=== PATIENT | male | born 1975 | race Caucasian/White ===

== ENCOUNTER 2019-05-10 21:27 | Emergency (ER) | payer BC, SELFPAY ==
[2019-05-10 21:29] VITALS: BP 134/91; PULSE 90; RESP 16; TEMP 36.7; O2SAT 98; BMI 27.3
--- NOTE | 2019-05-10 22:47 | EKG12_ITS ---
Test Reason : GENERAL ILLNESS Blood Pressure : / mmHG Vent. Rate : 078 BPM Atrial Rate : 078 BPM P-R Int : 154 ms QRS Dur : 098 ms QT Int : 406 ms P-R-T Axes : 053 078 034 degrees QTc Int : 462 ms Normal sinus rhythm Normal ECG Confirmed by JB SAL [id number]), editor producer NATHANIEL SPANGLER ([id number]) on 05/13/2019 2:52:56 PM Referred By: LIA Confirmed By:JB SAL
--- NOTE | 2019-05-10 22:48 | ED.VIS.GEN ---
History of Present Illness Chief Complaint: General Illness Informant: Patient, Family Onset: Today Context: Gradual Onset - See below Timing: Continuous Quality: Generalized weakness Location: All over Current Severity: Moderate Maximum Severity: Severe Associated Symptoms: Sweating. Near syncopal. Narrative: Just prior to the onset of symptoms, patient states he was working on a car, taking a gas tank off of it and working within it. He was inhaling lots of fumes of gasoline. Then afterwards he went home and smoked. Afterwards he noticed he was feeling very weak and tired. He qualifies this by saying he has been working for the last 14 days in a row and has been fatigued. However he broke into a sweat and felt like he was going to pass out but had no other prodromal symptoms. He is very poor historian and his mother provides most of the history, he gives very vague answers to yes/no questions, he states he is not feeling lightheaded now but he was earlier when he was really feeling worse. Just a little bit ago, he started developing left-sided nonpleuritic chest discomfort which is still there. He denies any dyspnea, palpitations, headache, focal neurologic symptoms, changes in vision, or GI symptoms. He has not lost consciousness or been confused. Past Medical History - Allergies and Home Meds Allergies/Adverse Reactions: Allergies No Known Allergies Allergy (Verified 05/10/19 21:29) Primary Care Physician: Care Physician,No Primary [Primary Care Provider] - Past Medical History: None Lives: With Family Smoking Status: Current every day smoker Review of Systems General: Reports: Malaise, Subjective. Denies: Chills, Fever, Sweats Eyes: Denies: Visual changes - bilaterally, Diplopia ENT: Denies: Bilateral ear pain, Rhinorrhea, Sore throat Cardiovascular: Reports: Chest pain - Left side without radiation. Denies: Palpitations Respiratory: Denies: Dyspnea, Cough, Dyspnea on exertion Gastrointestinal: Denies: Abdominal pain, Nausea, Vomiting, Diarrhea, Melena, Hematochezia Genitourinary: Denies: Dysuria, Hematuria, Frequency Musculoskeletal: Reports: Back pain - Low back, muscular, chronic and unchanged. Denies: Swelling, Extremity Pain Skin: Denies: Rash, Wounds Neurological: Denies: Headache, Weakness, Numbness Physical Exam Vital Signs/Narrative: Vital Signs Temp Pulse Resp BP Pulse Ox 05/10/19 21:29 98.1 F 90 16 134/91 H 98 Inital Vital Signs reviewed: Yes General: Well nourished, Well developed, No Acute Distress Head: Normocephalic, Atraumatic Eyes: Perrl, EOMI ENT: Moist mucous membranes, No rhinorrhea, - - Posterior oropharynx clear Neck: Supple, Nontender, No lymphadenopathy, No JVD Cardiovascular: Regular rate, Regular rhythm, No murmurs Respiratory: No distress, CTA bilaterally, Chest nontender Abdomen: Soft, Nontender, Nondistended, Normal bowel sounds Back: Nontender, Normal Inspection Extremities: Nontender, No edema Skin: Normal color, No rash Neurological: Alert, Oriented x3, Cranial nerves II-XII grossly intact, Normal Strength, Normal Sensation Psychological: Normal affect, Normal Mood Diagnostic/Tx/Re-eval Laboratory Results 05/10/19 05/10/19 05/10/19 23:02 23:02 23:02 WBC 10.1 RBC 4.42 L Hgb 14.0 Hct 40.7 MCV 92.1 MCH 31.7 MCHC 34.4 RDW Std Deviation 43.8 RDW Coeff of Deanna 12.9 Plt Count 258 MPV 9.5 Immature Gran % (Auto) 0.500 Neut % (Auto) 62.0 Lymph % (Auto) 23.4 [place] % (Auto) 10.7 H Eos % (Auto) 2.8 Baso % (Auto) 0.6 Absolute Neuts (auto) 6.3 Absolute Lymphs (auto) 2.37 Nucleated RBC % 0 Sodium 139 Potassium 3.8 Chloride 108 H Carbon Dioxide 24.0 Anion Gap 7 BUN 17 Creatinine 0.90 Estim Creat Clear Calc 103.44 Est GFR (MDRD) Af Amer 119 Est GFR (MDRD) Non-Af 98 BUN/Creatinine Ratio 18.9 Glucose 108 H Lactic Acid 1.6 Calcium 8.5 - Rhythm Strip Rhythm Strip: Sinus Rhythm Rate: 78 Ectopy: None - EKG Initial EKG Interpretation: Sinus Rhythm, No Acute Injury Pattern - Normal EKG. Normal axis. - Medical Decision Making Work-up is unremarkable and reassuring. Patient was given a liter of IV fluids. He feels a little better. He is neurologically intact, has basically a normal physical exam. I suspect this was related to breathing in the gasoline fumes. No specific antidote is necessary, just avoiding that and breathing fresh air which she has been doing for several hours now. Advised to go home and rest and drink plenty of fluids tomorrow. He is comfortable with this plan. ED Disposition - Plan for ED Patient: Disposition: Home or Assisted Living Diagnosis: Malaise, Near syncope Instructions: NEAR SYNCOPE, Unknown Referrals: Rocio Palmer [NON-STAFF] - 3-5 Days if not improving
--- NOTE | 2019-05-10 22:52 | ED.RN ---
NO OLD EKGS IN MUSE
[2019-05-10] MEDS: 0.9% Normal Saline 1,000 ML 999 ML IV (23:04)
[2019-05-10 23:13] LABS: Absolute Lymphocyte Count 2.37 X10^3/uL (0.83-4.51); Absolute Neutrophil Count 6.3 X10^3/uL (2.0-7.7); Basophil# 0.06 X10^3/uL; Basophil% 0.6 % (0-1); Eosinophil# 0.28 X10^3/uL; Eosinophils% 2.8 % (0-5); Hematocrit 40.7 % (40-54); Lymphocyte # 2.37 X10^3/ul (4.0); Lymphocyte % 23.4 % (19-41); Mean Corp Hgb Conc 34.4 g/dL (32-36); Mean Corpuscular Hgb 31.7 pg (27.0-32.0); Mean Corpuscular Volume 92.1 fL (80-94); Mean Platelet Vol. 9.5 fl (6.2-12.0); Monocyte# 1.09 X10^3/uL; Monocyte% 10.7 % (0-10); NRBC Flagged by Analyzer 0 % (0-5); Neutrophil # 6.29 X10^3/uL (2.7-7.7); Platelet Count 258 K/mm3 (150-450); RBC Distribution Width CV 12.9 % (11.6-14.6); RBC Distribution Width SD 43.8 fl (35.1-43.9); Red Blood Count 4.42 M/mm3 (4.6-6.2); White Blood Count 10.1 K/mm3 (4.4-11.0)
[2019-05-10 23:27] LABS: Anion Gap 7 (5-15); BUN 17 mg/dL (7-18); BUN/Creat Ratio 18.9 RATIO (10-20); Calcium,Total 8.5 mg/dL (8.5-10.1); Chloride 108 mmol/L (98-107); EST Glomerular Filtration Rate 98 mL/min (>60); Est Glom Filt Rate - Afr Amer 119 mL/min (>60); Estimated Creatinine Clearance 103.44 ml/min; Glucose 108 mg/dL (74-106); Potassium 3.8 mmol/L (3.5-5.1); Sodium Level 139 mmol/L (136-145)
[2019-05-10 23:28] VITALS: BP 130/86; PULSE 89; RESP 16; O2SAT 98
[2019-05-10 23:35] LABS: Lactic Acid 1.6 mmol/L (0.4-1.9)
[2019-05-11 00:23] VITALS: RESP 16
== END 2019-05-11 00:23 | disposition home or self-care (01) ==
PROVIDERS: Emergency Provider Emergency Medicine
DX: R53.81 Other malaise (principal); R42 Dizziness and giddiness; Z72.0 Tobacco use
CPT/HCPCS: 80048; 83605; 85025; 93005; 96360; 99283; J7030